=== PATIENT | male | born 1975 | race Caucasian/White ===

== ENCOUNTER → 2017-01-26 | Outpatient (CLI) | payer MEDICARE, OTHER | LOC: RAD 09:03 | PROVIDERS: ATTEND Internal Medicine | DX: C62.02 Malignant neoplasm of undescended left testis (principal) | CPT/HCPCS: 71260; 74177 ==

== ENCOUNTER 2017-11-05 10:18 | Emergency (ER) | payer MEDICARE, OTHER ==
--- NOTE | 2017-11-05 10:34 | ER Document Report ---
ED Medical Screen (RME) - General Chief Complaint: Abdominal Pain Stated Complaint: ABDOMINAL PAIN Time Seen by Provider: 11/05/17 10:28 Mode of Arrival: Ambulatory Information source: Patient TRAVEL OUTSIDE OF THE [place] IN LAST 30 DAYS: No - HPI Patient complains to provider of: abd pain Onset: Other - pt was treated at PCP office for sinus infection last week. Now with abdominal pain - Related Data Allergies/Adverse Reactions: No Known Allergies Allergy (Verified 01/17/13 18:13) Past Medical History - Past Medical History Cardiac Medical History: Denies: Hx Coronary Artery Disease, Hx Heart Attack, Hx Hypertension Pulmonary Medical History: Denies: Hx Asthma, Hx Bronchitis, Hx COPD, Hx Pneumonia Neurological Medical History: Reports: Hx Seizures - LAST ONE 2 MONTHS AGO. Denies: Hx Cerebrovascular Accident Endocrine Medical History: Denies: Hx Diabetes Mellitus Type 1, Hx Diabetes Mellitus Type 2 Malignancy Medical History: Reports Hx Testicular Cancer Musculoskeltal Medical History: Denies Hx Arthritis Psychiatric Medical History: Reports: Hx Attention Deficit Hyperactivity Disorder Past Surgical History: Reports: Hx Orthopedic Surgery - left shoulder surgery - Immunizations Hx Diphtheria, Pertussis, Tetanus Vaccination: No Physical Exam - Vital signs Vitals: Temp Pulse Resp BP Pulse Ox 98.4 F 81 16 123/78 96 11/05/17 10:23 11/05/17 10:11/05/17 10:23 11/05/17 10:23 11/05/17 10:23 Course - Vital Signs Vital signs: Temp Pulse Resp BP Pulse Ox 98.4 F 81 16 123/78 96 11/05/17 10:23 11/05/17 10:23 11/05/17 10:23 11/05/17 10:23 11/05/17 10:23
--- NOTE | 2017-11-05 11:15 | RADIOLOGY REPORT (SQ) ---
EXAM DESCRIPTION: ACUTE ABDOMEN SERIES COMPLETED DATE/TIME: 11/05/2017 10:59 am REASON FOR STUDY: abd pain COMPARISON: None. NUMBER OF VIEWS: Three views. TECHNIQUE: Frontal chest, supine abdomen and upright/decubitus abdomen radiographic images acquired. LIMITATIONS: None. FINDINGS: CHEST: Lungs clear of infiltrates. FREE AIR: None. No abnormal gas collections. BOWEL GAS PATTERN: Nonobstructive pattern. No dilated loops or air fluid levels. CALCIFICATIONS: No suspicious calcifications. HARDWARE: None in the abdomen. SOFT TISSUES: No gross mass or suggestion of organomegaly. BONES: No acute fracture. No worrisome bone lesions. OTHER: No other significant finding. IMPRESSION: NO RADIOGRAPHIC EVIDENCE FOR ACUTE ABDOMINAL DISEASE. TECHNICAL DOCUMENTATION: JOB ID: [id number] [employer] All Rights Reserved
[2017-11-05 11:17] LABS: ABSOLUTE EOSINOPHILS # (AUTO) 0.1 10^3/uL (0.0-0.6); ABSOLUTE LYMPHOCYTES (AUTO) 2.2 10^3/uL (0.5-4.7); ABSOLUTE MONOCYTES (AUTO) 0.6 10^3/uL (0.1-1.4); ABSOLUTE NEUT (AUTO) 4.4 10^3/uL (1.7-8.2); BASOPHILS % (AUTO) 0.3 % (0-2); EOSINOPHILS % (AUTO) 1.3 % (0-6); HEMATOCRIT 46.3 % (37.9-51.0); HEMOGLOBIN 15.9 g/dL (13.5-17.0); LYMPHOCYTES % (AUTO) 29.8 % (13-45); MEAN CORPUSCULAR HEMOGLOBIN 30.2 pg (27.0-33.4); MEAN CORPUSCULAR HGB CONC 34.2 g/dL (32.0-36.0); MEAN CORPUSCULAR VOLUME 88 fl (80-97); MONOCYTES % (AUTO) 8.3 % (3-13); PLATELET COUNT 310 10^3/uL (150-450); RED BLOOD COUNT 5.24 10^6/uL (4.35-5.55); RED CELL DISTRIBUTION WIDTH 12.4 % (11.5-14.0); SEGMENTED NEUTROPHILS % (AUTO) 60.3 % (42-78); TOTAL CELLS COUNTED % (AUTO) 100 %; WHITE BLOOD COUNT 7.2 10^3/uL (4.0-10.5)
[2017-11-05 11:20] LABS: APPEARANCE,URINE CLEAR; BILIRUBIN,URINE NEGATIVE (NEGATIVE); COLOR,URINE YELLOW; GLUCOSE, URINE NEGATIVE (NEGATIVE); KETONES,URINE NEGATIVE (NEGATIVE); LEUKOCYTE ESTERASE,URINE SMALL (NEGATIVE); NITRITE,URINE NEGATIVE (NEGATIVE); PROTEIN,URINE NEGATIVE (NEGATIVE); URINE SPECIFIC GRAVITY 1.015; UROBILINOGEN,URINE NEGATIVE mg/dL (<2.0)
[2017-11-05 11:35] LABS: ALANINE AMINOTRANSFERASE 72 U/L (21-72); ALBUMIN 4.3 g/dL (3.5-5.0); ALKALINE PHOSPHATASE 49 U/L (38-126); ANION GAP 10 (5-19); ASPARTATE AMINO TRANSFERASE 31 U/L (17-59); BILIRUBIN,DIRECT 0.4 mg/dL (0.0-0.4); BILIRUBIN,TOTAL 0.8 mg/dL (0.2-1.3); BLOOD UREA NITROGEN 15 mg/dL (7-20); CALCIUM 10.1 mg/dL (8.4-10.2); CARBON DIOXIDE 28 mmol/L (22-30); CHLORIDE 104 mmol/L (98-107); GLUCOSE 109 mg/dL (75-110); LIPASE 120.6 U/L (23-300); POTASSIUM 4.7 mmol/L (3.6-5.0); SODIUM 141.6 mmol/L (137-145); TOTAL PROTEIN 6.8 g/dL (6.3-8.2)
[2017-11-05 11:48] VITALS: BP 130/74
--- NOTE | 2017-11-05 11:54 | ER Document Report ---
ED General - General Chief Complaint: Abdominal Pain Stated Complaint: ABDOMINAL PAIN Time Seen by Provider: 11/05/17 10:28 Mode of Arrival: Ambulatory Notes: Patient is here with 2 primary concerns. He says that he was seen by a local physician about 2 weeks ago for about 1 week of head and sinus congestion. He was put on amoxicillin for sinusitis which he finished taking yesterday. He is continuing to have head aches and pains in the forehead region and sinus regions. Patient was a smoker but stopped at the time that he started having these symptoms, about 2-1/2 weeks ago. In addition, patient is complaining of his stomach being upset and having pains with a little nausea. He has had some cough and congestion. Not running any fever. Patient had a testicular cancer diagnosed 5 years ago and had that testicle removed. He has been clean on all his annual follow-ups. No other surgeries. TRAVEL OUTSIDE OF THE [place] IN LAST 30 DAYS: No - Related Data Allergies/Adverse Reactions: No Known Allergies Allergy (Verified 01/17/13 18:13) Past Medical History - General Information source: Patient - Social History Smoking Status: Former Smoker - Stopped smoking 2 weeks ago Chew tobacco use (# tins/day): No Frequency of alcohol use: Occasional Drug Abuse: None Family History: None Patient has suicidal ideation: No Patient has homicidal ideation: No Neurological Medical History: Reports: Hx Seizures - LAST ONE 2 MONTHS AGO, not on any medications Endocrine Medical History: Denies: Hx Diabetes Mellitus Type 1, Hx Diabetes Mellitus Type 2 Malignancy Medical History: Reports Hx Testicular Cancer Musculoskeltal Medical History: Denies Hx Arthritis Psychiatric Medical History: Reports: Hx Attention Deficit Hyperactivity Disorder Past Surgical History: Reports: Hx Abdominal Surgery - x2 hernia repair, Hx Genitourinary Surgery - testicular surgery, Hx Orthopedic Surgery - left shoulder surgery - Immunizations Hx Diphtheria, Pertussis, Tetanus Vaccination: No Review of Systems - Review of Systems Notes: CONSTITUTIONAL : Denies fever. CARDIOVASCULAR: Denies chest pain. RESPIRATORY: Has a cough, mostly dry, but some congestion, but not short of breath. GASTROINTESTINAL: See HPI. GENITOURINARY: Denies difficulty or painful urinating, urinary frequency, blood in urine. Physical Exam - Vital signs Vitals: Temp Pulse Resp BP Pulse Ox 98.4 F 81 16 123/78 96 11/05/17 10:23 11/05/17 10:23 11/05/17 10:23 11/05/17 10:23 11/05/17 10:23 Interpretation: Normal. No: Febrile - Notes Notes: PHYSICAL EXAMINATION: GENERAL: Well-appearing, no acute distress. Does not sound congested. HEAD: Atraumatic, normocephalic. No significant nasal drainage at this time. NECK: Normal range of motion, supple. LUNGS: Breath sounds clear and equal bilaterally. HEART: Regular rate and rhythm without murmurs heard. ABDOMEN: Soft, nontender. No guarding or rebound or masses felt. Course - Re-evaluation Re-evalutation: 11/05/17 12:02 Labs and x-rays were all essentially normal except for a blood sugar of 165. Patient has never been diagnosed as diabetic. I advised him he needs to follow- up with his primary care doctor in a few weeks to have a repeat blood sugar and further workup and consider oral medications for his blood sugar. I advised him he does not need another course of antibiotics, and did not likely need to have the course of antibiotics that he did have. He probably has an upset stomach from having been on the amoxicillin and I told him the symptoms will probably resolve over the next few days or week. I am going to give him a short course of prednisone in a declining dose to see if that might help his sinus symptoms. I realize it might also exacerbate his blood sugar issue on the near term. Encouraged patient not to start back smoking. 11/05/17 19:41 Late entry note. I realized that I mistakenly gave this patient copies of the lab studies belonging to another patient. I was attempting to provide this patient with as much information as I could about his current state of health. Unfortunately I made that mistake and I contacted this patient, and he confirmed that I had provided lab studies prolonging to another patient. However , he had already left the hospital and was out of [place] and did not wish to return to bring the papers back. I apologize for the situation and asked that he make a proper confidential disposal of the papers he had that belonged to another patient. Patient said he understood and would confidentially dispose of the erroneous lab results I provided. I did tell the patient that the only thing that changed for him as a result of my mistake is that his blood sugar was not slightly elevated as we have discussed. Rather, it was normal and he did not need to follow-up regarding further testing or evaluation for his blood sugar. - Vital Signs Vital signs: Temp Pulse Resp BP Pulse Ox 98.4 F 80 18 130/74 H 98 11/05/17 11:48 11/05/17 11:48 11/05/17 11:48 11/05/17 11:48 11/05/17 11:48 - Laboratory Result Diagrams: 11/05/17 10:46 11/05/17 10:46 Laboratory results interpreted by me: 11/05/17 10:46 Ur Leukocyte Esterase SMALL H Discharge - Discharge Clinical Impression: Chronic sinusitis, Elevated blood sugar, Upset stomach Condition: Stable Disposition: HOME, SELF-CARE Additional Instructions: ABDOMINAL PAIN: There are many causes of abdominal pain. Pain can mean a serious problem requiring surgery (such as appendicitis). It can also be an innocent problem that goes away on its own (such as a viral infection). Often, time must pass to determine the cause of pain. The physician does not feel that hospitalization is necessary, at present. Things may change within the next 24 hours. Call the doctor or come back for re- examination if any problems occur, such as: (1) Pain that becomes more severe, steady, or becomes concentrated in one specific area. Also, pain that is more severe with movement or coughing. (2) Vomiting that persists or becomes more frequent. (3) Blood in the vomitus, urine, or bowel movements. Blood in the stool may have a tarry or black appearance. (4) Shaking chills or fever greater than 100 degrees F. (5) The abdomen becomes more distended or swollen. (6) Bowel movements cease. (7) Failure to improve as expected. NORMAL EXAM AND WORKUP: At this time, your examination and workup show no significant abnormality. No significant abnormal physical findings are noted. All laboratory, EKG, and imaging (x-ray, CT scans, ultrasound) studies that were ordered show no significant abnormality. Although your examination and all studies that were ordered showed no significant abnormal finding, there are no examinations and no studies that are 100% accurate. There is always the possibility that some abnormality could exist and not be detected with physical examination or within the limits and capabilities of laboratory and other studies. You should return or follow up as you were instructed on your visit today for further evaluation if your symptoms do not resolve. Your upset stomach most likely is due to the recent course of amoxicillin that she was taken. It characteristically causes diarrhea and loose bowels and stomach pains and cramping. Those symptoms resolved when she stopped taking the antibiotic amoxicillin. HYPERGLYCEMIA (HIGH BLOOD SUGAR): You have an abnormally high blood sugar. Not all high blood sugar requires long-term treatment. High blood sugar can be due to medications, , or the stress of illness. (These cases are "borderline diabetes.") If the doctor feels your high blood sugar might resolve with time, you may not require treatment now. It's very important that you follow through, to see if the blood sugar returns to normal levels. Uncontrolled high blood sugar leads to early heart disease, strokes, nerve damage, eye damage, and kidney damage. Call the physician if there is faintness, excess sleepiness, or very rapid breathing. See your primary care provider in a few weeks to recheck her blood sugar and decide if you need to be on pills to treat your very slightly elevated blood sugar. You have symptoms suggestive of chronic sinusitis, some related to smoking and some related to probable chronic nasal congestion. You do not need another course of antibiotics. You are not febrile and your white cell count is normal so you do not have an acute infection in your sinuses. By stopping smoking, that will help in the future. I am going to prescribe a short course of steroid medication, prednisone, to see if it might help with resolving your sinus condition. It may temporarily elevate your blood sugar while you are taking the prednisone. STEROID MEDICATION: You have been given a medicine of the cortisone/steroid class. This medication is used to control inflammation or allergy. It is usually only given for a short period of time, until the acute process subsides. There are usually no side effects from short-term use of cortisone-like medications. Some persons feel an increased sense of well-being and are not sleepy at bedtime. Long-term use of cortisone medications is best avoided, unless required for a severe condition. If your condition does not remit, or relapses after the course of corticosteroid medication, you should consult your physician. FOLLOW-UP CARE: If you have been referred to a physician for follow-up care, call the physician s office for an appointment as you were instructed or within the next two days. If you experience worsening or a significant change in your symptoms, notify the physician immediately or return to the Emergency Department at any time for re-evaluation. Prescriptions: Prednisone [Deltasone 10 mg Tablet] 10 mg PO ASDIR PRN #21 tablet PRN Reason:
== END 2017-11-05 12:01 | disposition home or self-care (01) ==
LOC: ER 10:18
DX: J32.9 Chronic sinusitis, unspecified (principal); R10.9 Unspecified abdominal pain; R11.0 Nausea; R05 Cough; R09.89 Other specified symptoms and signs involving the circulatory and respiratory systems; Z85.47 Personal history of malignant neoplasm of testis; Z87.891 Personal history of nicotine dependence
CPT/HCPCS: 36415; 74022; 80053; 81001; 83690; 85025; 99284

== ENCOUNTER → 2018-02-09 | Outpatient (CLI) | payer MEDICARE, OTHER ==
--- NOTE | 2018-02-09 09:17 | RADIOLOGY REPORT (SQ) ---
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 The patient is less than 50 years old. TECHNIQUE: CT scan of the chest performed using helical scanning technique with dynamic intravenous contrast injection. Images reviewed with lung, soft tissue and bone windows. Reconstructed coronal a nd sagittal MPR images reviewed. All images stored on PACS. CT scan of the abdomen and pelvis performed with intravenous and with oral contrastusing helical scan amber technique with dynamic intravenous contrast injection. Images reviewed with lung, soft tissue a nd bone windows. Reconstructed coronal and sagittal MPR images reviewed. Delayed images for evaluat ion of the urinary system also acquired and evaluated. All images stored on PACS. All CT scanners at this facility use dose modulation, iterative reconstruction, and/or weight based d osing when appropriate to reduce radiation dose to as low as reasonably achievable (ALARA). [facility]: Dose Right [facility]: CareDose [facility]: Dose Right [facility]: Teradose 4D [facility]: Smart [employer] RADIATION DOSE: CT Rad equipment meets quality standard of care and radiation dose reduction techniq ues were employed. CTDIvol: 7.4 - 9.0 mGy. DLP: 1221 mGy-cm. . LIMITATIONS: None. FINDINGS: CHEST: LUNGS AND PLEURA: No opacities, nodules, masses. No pneumothorax. No effusions. HILAR AND MEDIASTINAL STRUCTURES: No identified masses or abnormal nodes. HEART AND VASCULAR STRUCTURES: No aneurysm or dissection. No central pulmonary emboli. No pericardi al effusion. HARDWARE: None. THYROID AND OTHER SOFT TISSUES: No masses. No adenopathy. BONES: No significant finding. OTHER: No other significant finding. ABDOMEN AND PELVIS: LIVER: Normal size. No masses. No dilated ducts. SPLEEN: Normal size. No focal lesions. PANCREAS: No masses. No significant calcifications. No adjacent inflammation or peripancreatic fluid collections. Pancreatic duct not dilated. GALLBLADDER: No identified stones by CT criteria. No inflammatory changes to suggest cholecystitis. ADRENAL GLANDS: No significant masses or asymmetry. RIGHT KIDNEY AND URETER: No solid masses. No significant calcification. No hydronephrosis or hydroure ter. LEFT KIDNEY AND URETER: No solid masses. No significant calcification. No hydronephrosis or hydrouret er. AORTA AND VESSELS: No aneurysm. No dissection. Renal arteries, SMA, celiac without stenosis. RETROPERITONEUM: No retroperitoneal adenopathy, hemorrhage or masses. BOWEL AND PERITONEAL CAVITY: No masses or inflammatory changes. No free fluid or peritoneal masses. APPENDIX: Normal. ABDOMINAL WALL: No masses. No hernias. PELVIS: No mass or free fluid. Normal bladder. BONES: No significant or acute findings. OTHER: No other significant finding. IMPRESSION: NORMAL CT OF THE CHEST WITH IV CONTRAST. NORMAL CT OF THE ABDOMEN AND PELVIS WITH ORAL AND INTRAVENOUS CONTRAST. TECHNICAL DOCUMENTATION: JOB ID: [id number] Quality ID # [id number]: Final reports with documentation of one or more dose reduction techniques (e.g., Au tomated exposure control, adjustment of the mA and/or kV according to patient size, use of iterative reconstruction technique) 2010 [employer]- All Rights Reserved Reading location - IP/workstation name: [email or web address]
== END ==
LOC: RAD 08:17
PROVIDERS: ATTEND Internal Medicine
DX: C62.02 Malignant neoplasm of undescended left testis (principal)
CPT/HCPCS: 71260; 74177

== ENCOUNTER 2018-05-25 11:06 | Emergency (ER) | payer MEDICARE, OTHER ==
[2018-05-25 11:17] VITALS: BP 138/86
--- NOTE | 2018-05-25 11:45 | ER Document Report ---
ED General - General Chief Complaint: Eye Problem Stated Complaint: EYE DISCHARGE/REDNESS Time Seen by Provider: 05/25/18 11:20 Mode of Arrival: Ambulatory Information source: Patient TRAVEL OUTSIDE OF THE [place] IN LAST 30 DAYS: No - HPI Patient complains to provider of: eye discharge, sinus congestion Onset: Other - 2 weeks Associated symptoms: Nonproductive cough, Hoarseness, Rhinnorhea, Sinus pain/ drainage Exacerbated by: Denies Relieved by: Denies Similar symptoms previously: Yes - frequent sinusitis Recently seen / treated by doctor: Yes - physician in [place] Notes: Patient presents for sinus congestion and watery eyes. He states for the last 2 weeks he has had clear drainage and itching in both eyes. He states the drainage in his right eye is more severe than the left. He denies any pain or injury in his eyes. He has been treated for sinus infection about 4 weeks ago and completed a course of amoxicillin. He states his symptoms did improve after antibiotics but then came back worse. He is having sinus congestion and pressure as well as rhinorrhea. He denies fevers and chills. Patient has been using albuterol inhaler and Flonase for symptomatic relief. - Related Data Allergies/Adverse Reactions: No Known Allergies Allergy (Verified 05/25/18 11:34) Past Medical History - Social History Smoking Status: Current Every Day Smoker Chew tobacco use (# tins/day): No Frequency of alcohol use: Occasional Family History: None Patient has suicidal ideation: No Patient has homicidal ideation: No - Medical History Medical History: Other - Testicular cancer - Past Medical History Cardiac Medical History: Denies: Hx Coronary Artery Disease, Hx Heart Attack, Hx Hypertension Pulmonary Medical History: Denies: Hx Asthma, Hx Bronchitis, Hx COPD, Hx Pneumonia Neurological Medical History: Reports: Hx Seizures - LAST ONE 2 MONTHS AGO, not on any medications. Denies: Hx Cerebrovascular Accident Endocrine Medical History: Denies: Hx Diabetes Mellitus Type 1, Hx Diabetes Mellitus Type 2 Renal/ Medical History: Denies: Hx Peritoneal Dialysis Malignancy Medical History: Reports Hx Testicular Cancer Musculoskeletal Medical History: Denies Hx Arthritis Psychiatric Medical History: Reports: Hx Attention Deficit Hyperactivity Disorder Surgical Hx: Other - Left testicle removal Past Surgical History: Reports: Hx Abdominal Surgery - x2 hernia repair, Hx Genitourinary Surgery - testicular surgery, Hx Orthopedic Surgery - left shoulder surgery - Immunizations Hx Diphtheria, Pertussis, Tetanus Vaccination: No Review of Systems - Review of Systems Notes: REVIEW OF SYSTEMS: CONSTITUTIONAL : Denies fever, chills, or sweats. Denies recent illness. EENT: Itchy eyes. Watery eyes. Eye redness. Nasal and sinus congestion. CARDIOVASCULAR: Denies chest pain. RESPIRATORY: Nonproductive cough. Denies shortness of breath, difficulty breathing, or wheezing. GASTROINTESTINAL: Denies abdominal pain. Denies nausea, vomiting, or diarrhea. Denies constipation. Last BM: GENITOURINARY: Denies difficulty urinating, painful urination, burning, frequency, or blood in urine. FEMALE GENITOURINARY: Denies vaginal bleeding, abnormal or irregular periods. LMP: MUSCULOSKELETAL: Denies neck or back pain or joint pain or swelling. SKIN: Denies rash or skin lesions. HEMATOLOGIC : Denies easy bruising or bleeding. LYMPHATIC: Denies swollen, enlarged glands. NEUROLOGICAL: Denies altered mental status or loss of consciousness. Denies headache. Denies weakness or paralysis or loss of use of either side. Denies problems with gait or speech. Denies sensory or motor loss. PSYCHIATRIC: Denies anxiety or stress or depression. ALL OTHER SYSTEMS REVIEWED AND NEGATIVE. Physical Exam - Vital signs Vitals: Temp Pulse Resp BP Pulse Ox 98.7 F 77 18 138/86 H 98 05/25/18 11:14 05/25/18 11:14 05/25/18 11:14 05/25/18 11:14 05/25/18 11:14 - Notes Notes: PHYSICAL EXAMINATION: GENERAL: Well-appearing, well-nourished and in no acute distress. HEAD: Atraumatic, normocephalic. EYES: Pupils equal round and reactive to light, extraocular movements intact, sclera anicteric. Bilateral mild conjunctival injection and clear drainage. No pain with ocular movement. ENT: oropharynx clear without exudates. Moist mucous membranes. Bilateral nasal mucosal edema and rhinorrhea. Bulging TMs bilaterally with middle ear effusion bilaterally. No TM erythema. NECK: Normal range of motion, supple without lymphadenopathy LUNGS: Breath sounds clear to auscultation bilaterally and equal. No wheezes rales or rhonchi. HEART: Regular rate and rhythm without murmurs ABDOMEN: Soft, nontender, normoactive bowel sounds. No guarding, no rebound. No masses appreciated. EXTREMITIES: Normal range of motion, no pitting or edema. No cyanosis. NEUROLOGICAL: No focal neurological deficits. Moves all extremities spontaneously and on command. PSYCH: Normal mood, normal affect. SKIN: Warm, Dry, normal turgor, no rashes or lesions noted. - HEENT Visual acuity- Right eye: 20/15 Visual acuity- Left eye: 20/20 Visual acuity- Both eyes: 20/20 Corrective lenses worn: Yes Course - Re-evaluation Re-evalutation: 05/25/18 11:47 Vitals reviewed and stable. Patient has symptoms consistent with sinusitis. He has bilateral conjunctival injection that is mild. With the eye itching I do not suspect viral or bacterial conjunctivitis. Patient symptoms consistent with allergic conjunctivitis. He was advised to start using Naphcon-A drops for symptomatic treatment. He will be started on Augmentin for sinusitis. He has an appointment with his primary care doctor on Monday which he will keep. He will return for new or worsening symptoms. - Vital Signs Vital signs: Temp Pulse Resp BP Pulse Ox 98.7 F 77 18 138/86 H 98 05/25/18 11:14 05/25/18 11:14 05/25/18 11:14 05/25/18 11:14 05/25/18 11:14 Discharge - Discharge Clinical Impression: Sinusitis, Allergic conjunctivitis Condition: Good Disposition: HOME, SELF-CARE Instructions: Conjunctivitis, Allergic Additional Instructions: Sinusitis You have sinusitis, an infection of the sinus cavities of the face. The sinuses are air-filled chambers which open into the inside of the nose. Bacteria and pus fill a sinus, causing pain, drainage, and fever. Sinusitis is treated with antibiotics. Often, expectorants (to thin the sinus mucous) or decongestants (to reduce swelling) are prescribed as well. Healing requires seven to 10 days. Avoid chemical fumes, pollens, dusts, and smoke (especially cigarette smoke ). Keep the air humidified in your bedroom and work area and take plenty of liquids by mouth. This condition can be serious if the infection spreads. If your symptoms worsen, or if you develop severe headache, high fever, stiff neck, or a rash, you must call the doctor or return for re-evaluation. Prescriptions: Amox Tr/Potassium Clavulanate [Augmentin 875-125 Tablet] 1 tab PO BID 10 Days tablet Referrals: RON GAMEZ MD [Primary Care Provider] - Follow up in 3-5 days
== END 2018-05-25 12:14 | disposition home or self-care (01) ==
LOC: ER 11:06
DX: J32.9 Chronic sinusitis, unspecified (principal); H10.9 Unspecified conjunctivitis; R09.81 Nasal congestion; R05 Cough; R49.0 Dysphonia; J34.89 Other specified disorders of nose and nasal sinuses; R51 Headache; R09.89 Other specified symptoms and signs involving the circulatory and respiratory systems
CPT/HCPCS: 99283

== ENCOUNTER 2018-07-10 11:11 | Emergency (ER) | payer MEDICARE, OTHER ==
[2018-07-10 11:21] VITALS: BP 140/95
[2018-07-10] MEDS ORDERED: KETOROLAC TROMETHAMINE 60 MG/2 ML SDV IM ONE (11:32)
[2018-07-10] MEDS ORDERED: DEXAMETHASONE SOD PHOS INJ 10 MG/1 ML VIAL IM ONE (11:32)
--- NOTE | 2018-07-10 11:33 | ER Document Report ---
HPI - HPI Pain Level: 4 Notes: Patient is a 43-year-old male who presents to the ED complaining of intermittent ongoing right shoulder/mid back pain over the last year from a previous injury. Patient states he is not been evaluated by a specialist for this issue. Patient states that activity makes his pain worse. Patient states that he will occasionally have a tingling to his right arm. Patient describes his discomfort as a tightness in his back. Denies any drug allergies. He has not had any injections to his back or any history of spinal abscess. Denies any IV drug use. Denies drug allergies. Denies any headache, fever, neck pain , URI, sore throat, chest pain, palpitations, syncope, cough, shortness of breath, wheeze, dyspnea, abdominal pain, nausea/vomiting/diarrhea, urinary retention, dysuria, hematuria, loss of control of bowel or bladder, saddle anesthesia, muscle paralysis/weakness, or rash. - ROS Systems Reviewed and Negative: Yes All other systems reviewed and negative - CONSTITUTIONAL Constitutional: DENIES: Fever, Chills - EENT EENT: DENIES: Sore Throat, Ear Pain, Eye problems - CARDIOVASCULAR Cardiovascular: DENIES: Chest pain - RESPIRATORY Respiratory: DENIES: Trouble Breathing, Coughing - GASTROINTESTINAL Gastrointestinal: DENIES: Abdominal Pain, Black / Bloody Stools - URINARY Urinary: DENIES: Dysuria, Urgency, Frequency - MUSCULOSKELETAL Musculoskeletal: DENIES: Extremity pain - right arm Past Medical History - Social History Smoking Status: Current Every Day Smoker Chew tobacco use (# tins/day): No Frequency of alcohol use: Occasional Drug Abuse: None Family History: None Patient has suicidal ideation: No Patient has homicidal ideation: No - Past Medical History Cardiac Medical History: Denies: Hx Coronary Artery Disease, Hx Heart Attack, Hx Hypertension Pulmonary Medical History: Denies: Hx Asthma, Hx Bronchitis, Hx COPD, Hx Pneumonia Neurological Medical History: Reports: Hx Seizures - LAST ONE 2 MONTHS AGO, not on any medications. Denies: Hx Cerebrovascular Accident Endocrine Medical History: Denies: Hx Diabetes Mellitus Type 1, Hx Diabetes Mellitus Type 2 Renal/ Medical History: Denies: Hx Peritoneal Dialysis Malignancy Medical History: Reports Hx Testicular Cancer Musculoskeletal Medical History: Denies Hx Arthritis Psychiatric Medical History: Reports: Hx Attention Deficit Hyperactivity Disorder Past Surgical History: Reports: Hx Abdominal Surgery - x2 hernia repair, Hx Genitourinary Surgery - testicular surgery, Hx Orthopedic Surgery - left shoulder surgery - Immunizations Hx Diphtheria, Pertussis, Tetanus Vaccination: No Vertical Provider Document - CONSTITUTIONAL Agree With Documented VS: Yes Notes: PHYSICAL EXAMINATION: GENERAL: Well-appearing, well-nourished and in no acute distress. LUNGS: Breath sounds clear to auscultation bilaterally and equal. No wheezes rales or rhonchi. HEART: Regular rate and rhythm without murmurs, rubs, gallops. ABDOMEN: Soft, nontender, nondistended abdomen. No guarding, no rebound. No masses appreciated. Normal bowel sounds present. No CVA tenderness bilaterally. No pulsatile mass Musculoskeletal: Rt shoulder: FROM to passive/active. Strength 5+/5 due to pain. Neg speed test. No crepitus. No erythema or warmth. No deformity or ecchymosis. RC intact 5+/5 strength. Ext's otherwise b/l: FROM to passive/active. Strength 5+/5. No deficits noted. No bony tenderness of extremities. N/V intact distal. Thoracic/Low Back: FROM to passive/active. Strength 5+/5. No vertebral point tenderness, stepoffs, or deformities. No other bony tenderness, erythema, swelling, or ecchymosis. SLR negative b/l. + mild tenderness to the rt T- paraspinal mm which correlates with pain described. Mild spasming with trigger points noted. No SI jt tenderness. No foot drop Extremities: No cyanosis, clubbing, or edema b/l. Peripheral pulses 2+. Capillary refill less than 2 seconds. NEUROLOGICAL: Normal speech, normal gait. Normal sensory, motor exams. Reflexes 2+ b/l. PSYCH: Normal mood, normal affect. SKIN: Warm, Dry, normal turgor, no rashes or lesions noted. - INFECTION CONTROL TRAVEL OUTSIDE OF THE [place] IN LAST 30 DAYS: No Course - Re-evaluation Re-evalutation: 07/10/18 11:37 Patient is an afebrile, well-hydrated, 43-year-old male who presents to the ED with acute on chronic thoracic back pain, suspect trapezius mm spasming/strain. Vitals are acceptable. PE is otherwise unremarkable for any focal neurological deficits. Patient was given Decadron and toradol. He has no significant tachycardia, tachypnea, or hypoxia. He is nontoxic-appearing and is tolerating p.o. without difficulties. There are no signs of infection. No other red flag symptoms noted. No other labs or imaging warranted at this time based on H&P. Low suspicion for any meningitis, fracture, expanding/ruptured AAA, cauda equina syndrome, epidural mass lesion/abscess, herniated disc causing severe spinal stenosis, or other systemic infection at this time. Patient is aware that his condition can change from initial presentation and that he needs monitor symptoms closely for any acute changes. I will send him home with a prescription for baclofen and naproxen. Conservative measures otherwise for symptoms. Recheck with your PCM in 3-5 days. Consider consult with orthopedic/physical therapy. Return to the ED with any worsening/ concerning symptoms otherwise as reviewed discharge. Patient is in agreement. - Vital Signs Vital signs: Temp Pulse Resp BP Pulse Ox 98.8 F 73 16 140/95 H 99 07/10/18 11:20 07/10/18 11:20 07/10/18 11:20 07/10/18 11:20 07/10/18 11:20 Discharge - Discharge Clinical Impression: Trapezius muscle spasm Thoracic back pain Qualifiers: Chronicity: acute Back pain laterality: right Qualified Code(s): M54.6 - Pain in thoracic spine Condition: Stable Disposition: HOME, SELF-CARE Instructions: Muscle Relaxers ([facility]) Additional Instructions: Rest, Ice Tylenol/ibuprofen as needed Light stretches daily Strength exercises as able Moist heat and massage may help F/u with your PCP in 3-5 days for a recheck Consider consult(s) with Orthopedics/physical therapy for ongoing/worsening symptoms Return to the ED with any worsening symptoms and/or development of fever, headache, chest pain, palpitations, syncope, shortness of breath, trouble breathing, abdominal pain, n/v/d, blood in stool/urine, loss of control of bowel /bladder, urinary retention, muscle weakness/paralysis, saddle anesthesia, numbness/tingling, or other worsening symptoms that are concerning to you. Prescriptions: Baclofen [Baclofen 10 mg Tablet] 5 - 10 mg PO BID PRN #10 tablet PRN Reason: Naproxen 500 mg PO BID PRN #20 tablet PRN Reason: Forms: Elevated Blood Pressure Referrals: RON GAMEZ MD [Primary Care Provider] - Follow up as needed [facility] [Provider Group] - Follow up as needed
== END 2018-07-10 12:01 | disposition home or self-care (01) ==
LOC: ER 11:11
DX: M62.830 Muscle spasm of back (principal); M54.6 Pain in thoracic spine; G89.29 Other chronic pain; R20.2 Paresthesia of skin; M25.511 Pain in right shoulder; F17.200 Nicotine dependence, unspecified, uncomplicated
CPT/HCPCS: 99283; 96372; J1885; J1100

== ENCOUNTER 2018-08-07 12:04 | Emergency (ER) | payer MEDICARE, OTHER ==
[2018-08-07 12:12] VITALS: BP 141/85
--- NOTE | 2018-08-07 13:17 | ER Document Report ---
ED General - General Chief Complaint: Neck and Upper Back Pain Stated Complaint: BACK/NECK/ARM PAIN/SINUS PRESSURE Time Seen by Provider: 08/07/18 13:03 Mode of Arrival: Ambulatory Information source: Patient Notes: Patient is a 43-year-old male comes emergency room complaining of multiple things. Primarily is #1 complaint is back and neck pain. He also states that it he was seen here recently on June for the same complaint he was referred to an orthopedist and the orthopedic doctor sent him to physical therapy. Patient comes in today requesting that we do an MRI of the area because he is not getting any better. Secondly he has an upper respiratory cold congestion runny nose and cough denies any fevers. He does smoke about half pack cigarettes a day. He denies any other medical problems. TRAVEL OUTSIDE OF THE [place] IN LAST 30 DAYS: No - HPI Onset: Other - Upper respiratory cold 2 days. Shoulder and neck one year. Onset/Duration: Gradual, Persistent Quality of pain: Achy, Stabbing, Throbbing Severity: Moderate Pain Level: 3 Associated symptoms: Nonproductive cough, Headache, Sinus pain/drainage, Sore throat Exacerbated by: Supine, Standing, Movement Relieved by: Denies Similar symptoms previously: Yes Recently seen / treated by doctor: Yes - Related Data Allergies/Adverse Reactions: No Known Allergies Allergy (Verified 08/07/18 12:05) Past Medical History - General Information source: Patient - Social History Smoking Status: Current Every Day Smoker Cigarette use (# per day): Yes - Half-pack a day Chew tobacco use (# tins/day): No Smoking Education Provided: Yes Frequency of alcohol use: Social Drug Abuse: None Family History: None, Reviewed & Not Pertinent Patient has suicidal ideation: No Patient has homicidal ideation: No - Past Medical History Cardiac Medical History: Denies: Hx Coronary Artery Disease, Hx Heart Attack, Hx Hypertension Pulmonary Medical History: Denies: Hx Asthma, Hx Bronchitis, Hx COPD, Hx Pneumonia Neurological Medical History: Reports: Hx Seizures - LAST ONE 2 MONTHS AGO, not on any medications. Denies: Hx Cerebrovascular Accident Endocrine Medical History: Denies: Hx Diabetes Mellitus Type 1, Hx Diabetes Mellitus Type 2 Renal/ Medical History: Denies: Hx Peritoneal Dialysis Malignancy Medical History: Reports Hx Testicular Cancer Musculoskeletal Medical History: Denies Hx Arthritis Psychiatric Medical History: Reports: Hx Attention Deficit Hyperactivity Disorder Past Surgical History: Reports: Hx Abdominal Surgery - x2 hernia repair, Hx Genitourinary Surgery - testicular surgery, Hx Orthopedic Surgery - left shoulder surgery - Immunizations Hx Diphtheria, Pertussis, Tetanus Vaccination: No Review of Systems - Review of Systems Constitutional: No symptoms reported EENT: No symptoms reported, Nose congestion, Nose discharge, Sinus pressure, Sinus discharge Cardiovascular: No symptoms reported Respiratory: No symptoms reported Gastrointestinal: No symptoms reported Genitourinary: No symptoms reported Male Genitourinary: No symptoms reported Musculoskeletal: Back pain, Neck pain Skin: No symptoms reported Hematologic/Lymphatic: No symptoms reported Neurological/Psychological: No symptoms reported -: Yes All other systems reviewed and negative Physical Exam - Vital signs Vitals: Temp Pulse Resp BP Pulse Ox 98.4 F 88 16 141/85 H 96 08/07/18 12:11 08/07/18 12:11 08/07/18 12:11 08/07/18 12:11 08/07/18 12:11 Interpretation: Hypertensive - Notes Notes: PHYSICAL EXAMINATION: GENERAL: Well-appearing, well-nourished and in no acute distress. HEAD: Atraumatic, normocephalic. EYES: Pupils equal round and reactive to light, extraocular movements intact, sclera anicteric, conjunctiva are normal. ENT: Examination head and upper airway showed nasal mucosa to be erythematous and edematous with some rhinorrhea noted. Patient also displays some mild tenderness to palpation of the frontal sinuses. Examination of the ears show he has bilateral TM bulging without any air-fluid levels. External canals have some mild cerumen throughout the but no obstruction of the TM view is present. Examination of posterior pharynx shows some moderate amount of drainage as well as some erythema throughout the posterior pharynx uvula is midline with erythema but no encroachment upon the uvula. Drainage appears to be a off yellowish color. NECK: Normal range of motion, supple without lymphadenopathy LUNGS: Breath sounds clear to auscultation bilaterally and equal. Patient displays some mild inspiratory expiratory wheeze. No rhonchi or rales are heard. HEART: Regular rate and rhythm without murmurs ABDOMEN: Soft, nontender, nondistended abdomen. No guarding, no rebound. No masses appreciated. Musculoskeletal: Examination the patient complained areas neck and right arm pain shows moderate amount of decreased range of motion but nothing concerning for acute problems. NEUROLOGICAL:. Normal speech, normal gait. Normal sensory, motor exams PSYCH: Normal mood, normal affect. SKIN: Warm, Dry, normal turgor, no rashes or lesions noted. Course - Re-evaluation Re-evalutation: 08/07/18 13:17 Patient comes in and he is open with me about being seen on July 10 for the same complaints and had a workup done. He also states that he did go to the orthopedic appointment that he was referred to with our group in house he believes that the doctor he saw was Dr. Antonieta Chandler and he states that they sent him to physical therapy. He states he supposed to be physical therapy in 1 hour. He came out and asked me point blank if I could do an MRI of his problems and I informed him I could not. He stated can I giving a medications that are stronger than the medications previously given him for this problem and I informed him I could not. He asked me why and I told him that he has been seeing a specialist he has a open door to the specialist and this is something that needs to be addressed by the specialist. Since he saw the specialist and did not mention anything about the pain control he can continue with the medication he has he can add ibuprofen to it as I have instructed him. He can add ibuprofen in combination with Tylenol. I have informed him that because he is seeing a specialist I am not going to go into any substantial increase in pain treatment because I do not want to interfere with the specialist plan of care. I did tell him I would be more than happy to see him for his upper respiratory type presentation and he stated that that was fine with him and understood why I could not do the increase in or changing of pain medications. I believe that he is adequately covered with the baclofen. - Vital Signs Vital signs: Temp Pulse Resp BP Pulse Ox 98.4 F 88 16 141/85 H 96 08/07/18 12:11 08/07/18 12:11 08/07/18 12:11 08/07/18 12:11 08/07/18 12:11 Discharge - Discharge Clinical Impression: Chronic pain due to injury, Upper respiratory infection, viral Condition: Stable Disposition: HOME, SELF-CARE Instructions: Acetaminophen, Upper Respiratory Illness ([facility]), Viral Syndrome ( [facility]) Additional Instructions: As we have discussed I cannot change the medications you are on currently for pain control since you are seeing a specialist in this field of expertise. He is states you to physical therapy we have coverage you with what I believe to be appropriate medications and this is a something that you need to discuss with the specialist as on the nature of what medications he would like to give you for this type of pain. We also do not do routine MRIs out of the emergency room especially for chronic problems. This is also something that the specialist can order for you if he desires. Continue with the current medication as you got. You may add ibuprofen and Tylenol in combination form this may give you some more substantial relief. I am also going to place you on a steroid taper for the sinus and wheeze that you have going on and Sudafed to dry up the nasal congestion. Should you have any other problems or concerns return to ER for a recheck. Prescriptions: Prednisone 10 mg PO ASDIR PRN 6 Days #1 tab.ds.pk PRN Reason: Pseudoephedrine HCl [Sudafed 12 Hour] 120 mg PO BID #20 tablet.er Forms: Elevated Blood Pressure, Smoking Cessation Education Referrals: KIKI GEORGE MD [ACTIVE STAFF] - Follow up as needed
== END 2018-08-07 13:30 | disposition home or self-care (01) ==
LOC: ER 12:04
DX: G89.29 Other chronic pain (principal); T14.90XS Injury, unspecified, sequela; X58.XXXS Exposure to other specified factors, sequela; J06.9 Acute upper respiratory infection, unspecified; B97.89 Other viral agents as the cause of diseases classified elsewhere; M54.9 Dorsalgia, unspecified; M54.2 Cervicalgia; M79.601 Pain in right arm; R05 Cough; R51 Headache; J34.89 Other specified disorders of nose and nasal sinuses; J02.9 Acute pharyngitis, unspecified; R09.89 Other specified symptoms and signs involving the circulatory and respiratory systems; F17.210 Nicotine dependence, cigarettes, uncomplicated; Z85.47 Personal history of malignant neoplasm of testis
CPT/HCPCS: 99283

== ENCOUNTER → 2018-08-24 | Outpatient (CLI) | payer MEDICARE, OTHER ==
--- NOTE | 2018-08-24 16:34 | RADIOLOGY REPORT (SQ) ---
EXAM DESCRIPTION: MRI CERVICAL SPINE WITHOUT COMPLETED DATE/TIME: 08/24/2018 4:22 pm REASON FOR STUDY: M54.12 RADICULOPATHY, CERVICAL REGION M54.12 RADICULOPATHY, CERVICAL REGION COMPARISON: None. TECHNIQUE: Sagittal and Axial imaging includes T1, T2, STIR and gradient echo sequences. LIMITATIONS: None. FINDINGS: ALIGNMENT: Reversal of cervical lordosis VERTEBRAE: Intact. BONE MARROW: Normal. No marrow replacement or reactive changes. DISCS: Diffuse decreased T2 weighted intervertebral disc signal. Anterior disc space loss of height at C5-6 HARDWARE: None in the spine. CORD AND BASE OF BRAIN: Mild prominence of the central canal spinal cord from the C6-7 level to the m id T1 level. SOFT TISSUES: No soft tissue masses. C1-C2: No significant spinal stenosis. C2-C3: Mild posterior disc bulging is present without central stenosis. Very mild bilateral foramina l narrowing. C3-C4: Mild diffuse posterior disc bulging is present without central stenosis. Moderate right, high -grade left foraminal narrowing from facet and uncovertebral hypertrophy C4-C5: Moderate diffuse posterior disc bulge and bony spurring partly effaces the ventral thecal sac and abuts the ventral cord without cord flattening or abnormal intrinsic cord signal. Mild central c anal narrowing. High-grade bilateral foraminal stenosis from facet and uncovertebral hypertrophy C5-C6: Broad diffuse posterior disc bulge and bony spurring left greater than right effaces the ventr al thecal sac and abuts the ventral cord without cord flattening. No abnormal intrinsic cord signal. Mild central canal stenosis. High-grade bilateral foraminal narrowing left greater than right C6-C7: Broad diffuse posterior disc bulge and bony spurring effaces the ventral thecal sac and abuts the ventral cord without cord flattening or abnormal intrinsic cord signal. Mild central canal steno sis. High-grade bilateral foraminal stenosis. C7-T1: No significant spinal stenosis or exit foraminal stenosis. UPPER THORACIC: Incompletely imaged. No significant spinal stenosis or exit foraminal stenosis. OTHER: No other significant finding. IMPRESSION: Multilevel significant foraminal stenosis and diffuse mild central canal stenosis TECHNICAL DOCUMENTATION: JOB ID: [id number] All Rights Reserved Reading location - IP/workstation name: [email or web address]
== END ==
LOC: RAD 15:57
PROVIDERS: ATTEND Orthopaedic Surgery
DX: M54.12 Radiculopathy, cervical region (principal)
CPT/HCPCS: 72141

== ENCOUNTER 2018-10-21 17:58 | Emergency (ER) | payer MEDICARE, OTHER ==
[2018-10-21 18:05] VITALS: BP 148/78
--- NOTE | 2018-10-21 18:41 | ER Document Report ---
ED Neuro Symptoms/Deficit - General Chief Complaint: Numbness Stated Complaint: HAND NUMBNESS Time Seen by Provider: 10/21/18 18:21 Primary Care Provider: [facility] [Provider Group] - Follow up tomorrow (Call tomorrow for an appointment with your spine surgeon.) Mode of Arrival: Ambulatory Information source: Patient, [facility] Records Notes: This 43-year-old male patient comes emerged from complaining of her right hand numbness over the thumb and index finger for the past 2 days. He had an MRI on 08/24/2018 showing significant degenerative changes and bulging disks with lateral foraminal stenosis at C4 through C7 region. He has had these symptoms in the past but they resolved with physical therapy doing neck traction type maneuvers. He does have an appointment with his spine surgeon next month to discuss surgery for his problem. He has not been on steroids for this problem. He does notice if his head is pulled away from his body the symptoms improve. TRAVEL OUTSIDE OF THE [place] IN LAST 30 DAYS: No - Related Data Allergies/Adverse Reactions: No Known Allergies Allergy (Verified 08/07/18 12:05) Past Medical History - General Information source: Patient, [facility] Records - Social History Smoking Status: Former Smoker Cigarette use (# per day): No Chew tobacco use (# tins/day): No Smoking Education Provided: No Frequency of alcohol use: Occasional Drug Abuse: None Lives with: Spouse/Significant other Family History: None, Reviewed & Not Pertinent Patient has suicidal ideation: No Patient has homicidal ideation: No Neurological Medical History: Reports: Hx Seizures - last seizure summer, not on any medications Malignancy Medical History: Reports Hx Testicular Cancer Psychiatric Medical History: Reports: Hx Attention Deficit Hyperactivity Disorder Past Surgical History: Reports: Hx Genitourinary Surgery - testicular surgery, Hx Herniorrhaphy - x2, Hx Orthopedic Surgery - left shoulder surgery - Immunizations Hx Diphtheria, Pertussis, Tetanus Vaccination: No Review of Systems - Review of Systems Constitutional: No symptoms reported EENT: No symptoms reported Cardiovascular: No symptoms reported Respiratory: No symptoms reported Gastrointestinal: No symptoms reported Genitourinary: No symptoms reported Musculoskeletal: No symptoms reported Skin: No symptoms reported Hematologic/Lymphatic: No symptoms reported Neurological/Psychological: See HPI Physical Exam - Vital signs Vitals: Temp Pulse Resp BP Pulse Ox 98.3 F 91 18 148/78 H 95 10/21/18 18:03 10/21/18 18:03 10/21/18 18:03 10/21/18 18:03 10/21/18 18:03 Interpretation: Normal - Notes Notes: PHYSICAL EXAMINATION: GENERAL: Well-appearing, well-nourished and in no acute distress. HEAD: Atraumatic, normocephalic. EYES: Pupils equal round and reactive to light, extraocular movements intact, sclera anicteric, conjunctiva are normal. ENT: nares patent, oropharynx clear without exudates. Moist mucous membranes. NECK: Normal range of motion, supple without lymphadenopathy. The patient avoids extending his neck as that would cause compression on cervical nerve and exacerbate his discomfort. LUNGS: Breath sounds clear to auscultation bilaterally and equal. No wheezes rales or rhonchi. HEART: Regular rate and rhythm without murmurs ABDOMEN: Soft, nontender, normoactive bowel sounds. No guarding, no rebound. No masses appreciated. EXTREMITIES: Normal range of motion, no pitting or edema. No cyanosis. There is no motor weakness at this time to the hands and fingers. NEUROLOGICAL: Cranial nerves grossly intact. Normal speech, normal gait. No rmal sensory, motor, and reflex exams. PSYCH: Normal mood, normal affect. SKIN: Warm, Dry, normal turgor, no rashes or lesions noted. Course - Vital Signs Vital signs: Temp Pulse Resp BP Pulse Ox 98.3 F 91 18 148/78 H 95 10/21/18 18:03 10/21/18 18:03 10/21/18 18:03 10/21/18 18:03 10/21/18 18:03 Discharge - Discharge Clinical Impression: Disorder of intervertebral disc at C5-C6 level with radiculopathy Condition: Stable Disposition: HOME, SELF-CARE Additional Instructions: Radiculopathy Radiculopathy is irritation of a nerve. Sometimes this is called "pinched nerve." The pain can be sharp and stabbing, constant and dull, or burning in nature. The pain can occur in any area of the chest, shoulders, or arms. Sometimes the pain is provoked by coughing or moving. Radiculopathy can be caused by physical pressure on a nerve, such as a herniated disc or swollen joint in the spine. It can also be caused by viral infections within the nerve or by nerve damage due to diabetes or blood vessel disease. Radicular pain is treated with antiinflammatory medicine. Injections may help resistant cases, if we can identify a single nerve that's causing the pain. Surgery is usually not necessary. If symptoms do not improve with time, you may need additional testing, such as an MRI or EMG (electromyogram). Return if there is local weakness or numbness, shortness of breath, increasing pain, or other new symptoms. Your history suggest you have a C6 cervical nerve radiculopathy. Your MRI from July 2018 shows multilevel cervical disc disease. Start the prednisone as prescribed tomorrow--you were given today's dose here in the emergency room. Try to avoid extending your neck, as this will tend to pinch the nerves worse. Call your spine surgeon tomorrow for an appointment. RETURN TO THE EMERGENCY ROOM IF ANY NEW OR WORSENING SYMPTOMS. Prescriptions: Prednisone [Deltasone 10 mg Tablet] 10 mg PO ASDIR PRN #21 tablet PRN Reason: Referrals: [facility] [Provider Group] - Follow up tomorrow (Call tomorrow for an appointment with your spine surgeon.)
[2018-10-21] MEDS ORDERED: PREDNISONE 20 MG TABLET PO ONE (18:42)
== END 2018-10-21 18:47 | disposition home or self-care (01) ==
LOC: ER 17:58
DX: M54.12 Radiculopathy, cervical region (principal); R20.0 Anesthesia of skin; Z79.52 Long term (current) use of systemic steroids; Z87.891 Personal history of nicotine dependence
CPT/HCPCS: 99283; A9270; J7512

== ENCOUNTER 2019-03-04 17:38 | Emergency (ER) | payer MEDICARE, OTHER ==
[2019-03-04] MEDS ORDERED: IBUPROFEN 800 MG TABLET PO ONE (19:14)
[2019-03-04] MEDS ORDERED: AMOXICILLIN TR/POT CLAVULANATE 500-125 MG TAB PO ONE (19:23)
[2019-03-04] MEDS ORDERED: AMOXICILLIN TRIHYD 250 MG CAPSULE PO ONE (19:23)
--- NOTE | 2019-03-04 20:12 | ER Document Report ---
HPI - HPI Patient complains to provider of: Sinus pressure Time Seen by Provider: 03/04/19 19:14 Pain Level: 3 Context: Patient is otherwise healthy 43-year-old male presents to the emergency department for generalized cough, congestion, frontal sinus pressure, intermittent shortness of breath, subjective fever for the last 9 days. Patient's denying any headache, chest pain, nuchal rigidity, rashes. Patient has history of asthma, uses albuterol inhalers as needed, denies medical allergies. - CONSTITUTIONAL Constitutional: REPORTS: Fever, Chills - RESPIRATORY Respiratory: REPORTS: Coughing Past Medical History - General Information source: Patient - Social History Smoking Status: Never Smoker Family History: None, Reviewed & Not Pertinent Patient has suicidal ideation: No Patient has homicidal ideation: No - Past Medical History Cardiac Medical History: Denies: Hx Coronary Artery Disease, Hx Heart Attack, Hx Hypertension Pulmonary Medical History: Denies: Hx Asthma, Hx Bronchitis, Hx COPD, Hx Pneumonia Neurological Medical History: Reports: Hx Seizures - last seizure summer, not on any medications. Denies: Hx Cerebrovascular Accident Endocrine Medical History: Denies: Hx Diabetes Mellitus Type 1, Hx Diabetes Mellitus Type 2 Renal/ Medical History: Denies: Hx Peritoneal Dialysis Malignancy Medical History: Reports Hx Testicular Cancer Musculoskeletal Medical History: Denies Hx Arthritis Psychiatric Medical History: Reports: Hx Attention Deficit Hyperactivity Disorder Past Surgical History: Reports: Hx Abdominal Surgery - x2 hernia repair, Hx Genitourinary Surgery - testicular surgery, Hx Herniorrhaphy - x2, Hx Orthopedic Surgery - left shoulder surgery - Immunizations Hx Diphtheria, Pertussis, Tetanus Vaccination: No Vertical Provider Document - CONSTITUTIONAL Agree With Documented VS: Yes Notes: GENERAL: Alert, interacts well. No acute distress. Although febrile upon arrival to the emergency room. HEAD: Normocephalic, atraumatic. Generalized frontal sinus tenderness noted, no maxillary sinus tenderness noted bilaterally EYES: Pupils equal, round, and reactive to light. Extraocular movements intact. ENT: Oral mucosa moist, tongue midline. Nares patent, swollen turbinates noted bilaterally. pharynx within normal limits no palatal petechiae noted TM's intact,nonerythematous, nonbulging bilaterally. NECK: Full range of motion. Supple. Trachea midline. No lymphadenopathy appreciated, no nuchal rigidity noted. LUNGS: Clear to auscultation bilaterally, no wheezes, rales, or rhonchi. No respiratory distress. HEART: Regular rate and rhythm. No murmur ABDOMEN: Soft, non-tender. Non-distended. Bowel sounds present in all 4 quadrants. EXTREMITIES: Moves all 4 extremities spontaneously. No edema, normal radial and dorsalis pedis pulses bilaterally. No cyanosis. BACK: no cervical, thoracic, lumbar midline tenderness. No saddle anesthesia, normal distal neurovascular exam. NEUROLOGICAL: Alert and oriented x3. Normal speech. cranial nerves II through XII grossly intact. PSYCH: Normal affect, normal mood. SKIN: Warm, dry, normal turgor. No rashes or lesions noted. - INFECTION CONTROL TRAVEL OUTSIDE OF THE [place] IN LAST 30 DAYS: No Course - Re-evaluation Re-evalutation: 03/04/19 20:10 I have a low suspicion of meningitis at this time. Patient overall appears well. The patient was noted to be febrile in the emergency department and slightly tachycardic which I feel is secondary to the fever. After initial treatments patient is still febrile it is noted that patient has 2 blankets over him. They were both removed.. He does have moist mucous membranes and is poing fluids like normally. Patient denies any chest pain, abdominal pain, shortness of breath currently. Patient's lung sounds are clear and equal in all jay. Patient is requesting a refill for of his albuterol inhaler. I do feel as though based on his frontal sinus tenderness, URI symptoms for 9 days and the fact that he is febrile in the emergency department I will treat for sinusitis. 03/04/19 20:56 In reviewing past charts patient was noted to have a temperature of 100.9 upon initial arrival. Patient was inevitably treated with Motrin. Repeat temperature was 101.0. Tylenol was then administered. Repeat vital signs reveal patient to be afebrile, non-tachycardic. Patient continues to appear nontoxic, well-hydrated, in no apparent distress. I have again discussed use of antibiotics Staying well-hydrated, antipyretics at home. Discussed close follow-up with primary care provider and return precautions. Patient voices understanding. Stable for discharge. This medical record was dictated with voice recognizing software. There may be grammatical, syntax errors that are unintended. - Vital Signs Vital signs: Temp Pulse Resp BP Pulse Ox 100.9 F H 108 H 18 133/80 H 96 03/04/19 17:44 03/04/19 17:44 03/04/19 17:44 03/04/19 17:44 03/04/19 17:44 Discharge - Discharge Clinical Impression: Sinusitis Qualifiers: Sinusitis location: frontal Chronicity: acute Recurrence: non-recurrent Qualified Code(s): J01.10 - Acute frontal sinusitis, unspecified Condition: Stable Disposition: HOME, SELF-CARE Instructions: Sinusitis ([facility]) Additional Instructions: As we discussed you have been seen and treated in the emergency department for a sinus infection. Please make sure you take antibiotics as prescribed. Please also make sure he continue to take [id number] Tylenol and Motrin for generalized pain and fevers. Please also stay well-hydrated. Please follow-up with a primary care provider in the next 24 to 48 hours return to the emergency room for any concerns. Prescriptions: RX: Albuterol Sulfate [Proair HFA Inhalation Aerosol 8.5 gm MDI] 2 puff IH Q4H PRN #1 mdi PRN Reason: Amox Tr/Potassium Clavulanate [Augmentin 875-125 Tablet] 1 tab PO BID 10 Days tablet Forms: Return to Work Referrals: MARA FISCHER FNP-C [Primary Care Provider] - Follow up as needed
[2019-03-04] MEDS ORDERED: ACETAMINOPHEN 325 MG TABLET PO ONE (20:21)
[2019-03-04 21:01] VITALS: BP 114/63
== END 2019-03-04 21:17 | disposition home or self-care (01) ==
LOC: ER 17:38
DX: J01.10 Acute frontal sinusitis, unspecified (principal); R05 Cough; R09.81 Nasal congestion; R51 Headache; R06.02 Shortness of breath; R50.9 Fever, unspecified
CPT/HCPCS: 99283; A9270 ×4; J3490

== ENCOUNTER 2019-03-07 10:04 | Emergency (ER) | payer MEDICARE, OTHER ==
--- NOTE | 2019-03-07 10:15 | ER Document Report ---
ED Medical Screen (RME) - General Chief Complaint: Fever Stated Complaint: FEVER Time Seen by Provider: 03/07/19 10:12 Primary Care Provider: MARA FISCHER FNP-C [Primary Care Provider] - Follow up as needed Mode of Arrival: Ambulatory Information source: Patient Notes: 43-year-old male presented to ED for being sick for a week now. He states he was seen on Monday was diagnosed with a sinus infection and started on amoxicillin. He states he continues to have a fever all week about every 5 hours even after he takes Tylenol he with his fever returns. He has a history of testicular cancer shoulder injury ventral hernia and seizures. He is a former smoker but does not smoke now drinks alcohol weekly and states he is retired. Patient is alert oriented respirations regular and unlabored speaking in full sentences walks with a even steady gait. I have greeted and performed a rapid initial assessment of this patient. A comprehensive ED assessment and evaluation of the patient, analysis of test results and completion of medical decision making process will be conducted by an additional ED providers. Dictation of this chart was performed using voice recognition software; therefore, there may be some unintended grammatical errors. TRAVEL OUTSIDE OF THE [place] IN LAST 30 DAYS: No - Related Data Allergies/Adverse Reactions: No Known Allergies Allergy (Verified 03/07/19 10:05) Past Medical History - Past Medical History Cardiac Medical History: Denies: Hx Coronary Artery Disease, Hx Heart Attack, Hx Hypertension Pulmonary Medical History: Denies: Hx Asthma, Hx Bronchitis, Hx COPD, Hx Pneumonia Neurological Medical History: Reports: Hx Seizures - last seizure summer, not on any medications. Denies: Hx Cerebrovascular Accident Endocrine Medical History: Denies: Hx Diabetes Mellitus Type 1, Hx Diabetes Mellitus Type 2 Renal/ Medical History: Denies: Hx Peritoneal Dialysis Malignancy Medical History: Reports Hx Testicular Cancer Musculoskeltal Medical History: Denies Hx Arthritis Psychiatric Medical History: Reports: Hx Attention Deficit Hyperactivity Disorder Past Surgical History: Reports: Hx Abdominal Surgery - x2 hernia repair, Hx Genitourinary Surgery - testicular surgery, Hx Herniorrhaphy - x2, Hx Orthopedic Surgery - left shoulder surgery - Immunizations Hx Diphtheria, Pertussis, Tetanus Vaccination: No Physical Exam - Vital signs Vitals: Temp Pulse Resp BP Pulse Ox 98.1 F 97 16 121/70 97 03/07/19 10:03/07/19 10:03/07/19 10:03/07/19 10:03/07/19 10:09 Course - Vital Signs Vital signs: Temp Pulse Resp BP Pulse Ox 98.1 F 97 16 121/70 97 03/07/19 10:03/07/19 10:03/07/19 10:09 03/07/19 10:09 03/07/19 10:09 Doctor's Discharge - Discharge Referrals: MARA FISCHER, JUVENILE [employer]ATION OFFICER-C [Primary Care Provider] - Follow up as needed
[2019-03-07 10:41] LABS: HEMATOCRIT 40.8 % (37.9-51.0); MEAN CORPUSCULAR HEMOGLOBIN 29.7 pg (27.0-33.4); MEAN CORPUSCULAR HGB CONC 34.3 g/dL (32.0-36.0); MEAN CORPUSCULAR VOLUME 87 fl (80-97); PLATELET COUNT 246 10^3/uL (150-450); RED BLOOD COUNT 4.72 10^6/uL (4.35-5.55); RED CELL DISTRIBUTION WIDTH 12.6 % (11.5-14.0)
[2019-03-07 10:45] LABS: APPEARANCE,URINE SLIGHTLY-CLOUDY; BILIRUBIN,URINE NEGATIVE (NEGATIVE); GLUCOSE, URINE NEGATIVE (NEGATIVE); KETONES,URINE NEGATIVE (NEGATIVE); LEUKOCYTE ESTERASE,URINE NEGATIVE (NEGATIVE); NITRITE,URINE NEGATIVE (NEGATIVE); PROTEIN,URINE 30 mg/dL (NEGATIVE); URINE SPECIFIC GRAVITY 1.028
[2019-03-07 10:48] LABS: COLOR,URINE YELLOW
--- NOTE | 2019-03-07 11:00 | RADIOLOGY REPORT (SQ) ---
EXAM DESCRIPTION: CHEST 2 VIEWS COMPLETED DATE/TIME: 03/07/2019 10:44 am REASON FOR STUDY: Sick since Monday states has cough COMPARISON: 09/07/2013 EXAM PARAMETERS: NUMBER OF VIEWS: two views TECHNIQUE: Digital Frontal and Lateral radiographic views of the chest acquired. RADIATION DOSE: NA LIMITATIONS: none FINDINGS: LUNGS AND PLEURA: No opacities, masses or pneumothorax. No pleural effusion. MEDIASTINUM AND HILAR STRUCTURES: No masses or contour abnormalities. HEART AND VASCULAR STRUCTURES: Heart normal size. No evidence for failure. BONES: No acute findings. HARDWARE: None in the chest. OTHER: No other significant finding. IMPRESSION: No acute abnormality of the lungs. No focal airspace opacity. TECHNICAL DOCUMENTATION: JOB ID: [id number] [employer]- All Rights Reserved Reading location - IP/workstation name: [email or web address]
[2019-03-07 11:01] LABS: ABSOLUTE LYMPHOCYTES# (MANUAL) 3.2 10^3/uL (0.5-4.7); ABSOLUTE NEUTROPHILS# (MANUAL) 2.8 10^3/uL (1.7-8.2); BAND NEUTROPHILS % (MANUAL) 1 % (3-5); BASOPHILS % (MANUAL) 0 % (0-2); EOSINOPHILS % (MANUAL) 0 % (0-6); LYMPHOCYTES % (MANUAL) 27 % (13-45); MONOCYTES % (MANUAL) 14 % (3-13); SEGMENTED NEUTROPHILS % (MAN) 39 % (42-78); TOTAL CELLS COUNTED 100
[2019-03-07 11:02] LABS: URINE AMPHETAMINES SCREEN NEGATIVE; URINE BARBITURATES SCREEN NEGATIVE; URINE BENZODIAZEPINES SCREEN NEGATIVE; URINE COCAINE SCREEN NEGATIVE; URINE MARIJUANA (THC) SCREEN NEGATIVE; URINE METHADONE SCREEN NEGATIVE; URINE PHENCYCLIDINE SCREEN NEGATIVE
[2019-03-07 11:03] LABS: POLYCHROMASIA SLIGHT
[2019-03-07 11:04] LABS: PLATELET COMMENT ADEQUATE
[2019-03-07 11:07] LABS: ALANINE AMINOTRANSFERASE 71 U/L (21-72); ALBUMIN 3.7 g/dL (3.5-5.0); ALKALINE PHOSPHATASE 88 U/L (38-126); ANION GAP 7 (5-19); ASPARTATE AMINO TRANSFERASE 54 U/L (17-59); BILIRUBIN,DIRECT 0.4 mg/dL (0.0-0.4); BILIRUBIN,TOTAL 0.8 mg/dL (0.2-1.3); BLOOD UREA NITROGEN 9 mg/dL (7-20); CARBON DIOXIDE 29 mmol/L (22-30); CHLORIDE 103 mmol/L (98-107); GLUCOSE 105 mg/dL (75-110); LIPASE 144.2 U/L (23-300); POTASSIUM 4.6 mmol/L (3.6-5.0); SODIUM 138.5 mmol/L (137-145); TOTAL PROTEIN 6.5 g/dL (6.3-8.2)
--- NOTE | 2019-03-07 11:32 | ER Document Report ---
ED General - General Chief Complaint: Fever Stated Complaint: FEVER Time Seen by Provider: 03/07/19 10:12 Primary Care Provider: MARA FISCHER FNP-C [COMMUNITY BASED STAFF] - Follow up as needed Mode of Arrival: Ambulatory Notes: Patient says he has been experiencing fever and chills over the last 12 days. Has been feeling tired and weak, as well. Was seen here 3 days ago and diagnose d as having a sinus infection, and put on Augmentin. However, patient does not describe any symptoms that suggest a sinus infection. No nasal congestion or discharge. Denies sore throat. Has some mild cough and not much phlegm production. No vomiting or diarrhea. Says his fever was 102.3 this morning. Past medical history of surgery to remove his left testicle for cancer 6 years ago. No further treatment since then and cured of the disease. TRAVEL OUTSIDE OF THE [place] IN LAST 30 DAYS: No - Related Data Allergies/Adverse Reactions: No Known Allergies Allergy (Verified 03/07/19 10:05) Past Medical History - General Information source: Patient - Social History Smoking Status: Former Smoker Frequency of alcohol use: Occasional Drug Abuse: None Family History: None, Reviewed & Not Pertinent Patient has suicidal ideation: No Patient has homicidal ideation: No Neurological Medical History: Reports: Hx Seizures - last seizure summer, not on any medications Malignancy Medical History: Reports Hx Testicular Cancer Musculoskeletal Medical History: Denies Hx Arthritis Psychiatric Medical History: Reports: Hx Attention Deficit Hyperactivity Disorder Past Surgical History: Reports: Hx Abdominal Surgery - x2 hernia repair, Hx Genitourinary Surgery - testicular surgery, Hx Herniorrhaphy - x2, Hx Orthopedic Surgery - left shoulder surgery - Immunizations Hx Diphtheria, Pertussis, Tetanus Vaccination: No Review of Systems - Review of Systems Notes: CONSTITUTIONAL : Fever as described in HPI. CARDIOVASCULAR: Denies chest pain. RESPIRATORY: Denies much cough, chest congestion, or shortness of breath. Only slight nonproductive cough. GASTROINTESTINAL: Denies abdominal pain or nausea, vomiting, or diarrhea. GENITOURINARY: Denies difficulty or painful urinating, urinary frequency, blood in urine. Physical Exam - Vital signs Vitals: Temp Pulse Resp BP Pulse Ox 98.1 F 97 16 121/70 97 03/07/19 10:09 03/07/19 10:09 03/07/19 10:03/07/19 10:09 03/07/19 10:09 Interpretation: Normal. No: Febrile Notes: PHYSICAL EXAMINATION: GENERAL: Well-appearing, in no acute distress. No sinus congestion. No nasal congestion. HEAD: Atraumatic, normocephalic. EYES: Pupils equal round and reactive to light, extraocular movements intact. ENT: oropharynx clear without exudates. Moist mucous membranes. No exudates and no erythema. NECK: Normal range of motion, supple. No significant adenopathy. LUNGS: Breath sounds clear and equal bilaterally. HEART: Regular rate and rhythm without murmurs. ABDOMEN: Soft, nontender. No guarding or rebound. No masses. No left upper quadrant tenderness. BACK: No tenderness throughout entire back. EXTREMITIES: Normal range of motion without pain. NEUROLOGICAL: Normal speech, normal gait. Normal sensory, motor, and reflex exams. Awake, alert, and oriented x3. Cranial nerves normal. SKIN: Warm, dry, no rashes. Course - Re-evaluation Re-evalutation: 03/07/19 11:[address] Gamez. Probable viral illness. [place] test negative. - Vital Signs Vital signs: Temp Pulse Resp BP Pulse Ox 98.1 F 97 16 121/70 97 03/07/19 10:09 03/07/19 10:09 03/07/19 10:09 03/07/19 10:09 03/07/19 10:09 - Laboratory Result Diagrams: 03/07/19 10:20 03/07/19 10:20 Laboratory results interpreted by me: 03/07/19 03/07/19 10:20 10:20 Seg Neuts % (Manual) 39 L Band Neutrophils % 1 L Monocytes % (Manual) 14 H Urine Protein 30 H Urine Urobilinogen 4.0 H Discharge - Discharge Clinical Impression: Fever, Viral illness Condition: Stable Disposition: HOME, SELF-CARE Additional Instructions: FEVER: Fever is the body's reaction to infection. Fever can also occur with illnesses that create fever-producing substances in the body. By itself, fever is not harmful. It helps the body fight invading germs. We are more concerned with: (1) What's causing the fever? (2) How can we keep you more comfortable until the fever goes away? Early in an illness, symptoms are often so vague that a diagnosis can't be made. If the doctor hasn't identified a clear cause for your fever, you will probably develop new symptoms within the next two days. Contact the doctor if you develop severe worsening headache, rash, chest pain, cough with yellow or green sputum, difficulty breathing, abdominal pain, or other new symptoms. There is no reason to treat a fever if you're comfortable. If the fever is causing aches, headache, and fatigue, you can treat it with ibuprofen (Advil, Nuprin, etc) or acetaminophen (Tylenol). Follow the directions on the bottle. Get plenty of liquids (three quarts per day). Rest. Physical work or sports will raise the temperature higher and make you feel much worse. Dress lightly. If you're chilling, this means the temperature is trying to go higher. Take ibuprofen or acetaminophen. When you feel sweaty and "feverish" the temperature is coming down. If the fever doesn't go away within two days or if you become more ill, call the doctor or return at once for re-examination. NORMAL EXAM AND WORKUP: At this time, with the exception of your blood cells, with the exception of fever, your examination and workup show no significant abnormality. No significant abnormal physical findings were noted. All laboratory, EKG, and imaging (x-ray, CT scans, ultrasound) studies that were ordered show no significant abnormality. Although your examination and all studies that were ordered showed no significant abnormal finding, there are no examinations and no studies that are 100% accurate. There is always the possibility that some abnormality could exist and not be detected with physical examination or within the limits and capabilities of laboratory and other studies. You should return or follow up as you were instructed on your visit today for further evaluation if your symptoms do not resolve. VIRAL SYNDROME: The physician has diagnosed a likely viral infection. Viruses not only cause "colds," but can cause many different symptoms including generalized aching, fever, headache, cough, diarrhea, nausea, vomiting, and fatigue. The treatment, for the most part, is simply relief of symptoms. This means that antibiotics are usually not given. Rest, fluids, pain medications and, occasionally, medication for the specific symptoms that are most bothersome will be prescribed. Use good handwashing to avoid passing the virus to others. Shared toys should be cleaned with disinfectant. Clean the toilets, sinks, and counter surfaces in bathrooms. Launder clothing in hot water. Contact the physician if you develop any new or unusual symptoms such as severe headache, stiff neck, high fever, chest pain, productive cough, or shortness of breath. You should be rechecked if you don't see marked improvement within seven to 10 days. USE OF ACETAMINOPHEN (Tylenol): Acetaminophen may be taken for pain relief or fever control. It's much safer than aspirin, offering a wider range of "safe" dosages. It is safe during . Some brand names are Tylenol, Panadol, Datril, Anacin 3, Tempra, and Liquiprin. Acetaminophen can be repeated every four hours. The following are maximum recommended dosages: WEIGHT Dose Drops Elixir Chewable(80mg) (LBS.) drprs=droppers tsp=teaspoon >89 pounds or adults 650 mg to 900 mg Acetaminophen can be repeated every four hours. Maximum dose not to exceed 4000 mg a day. These maximum recommended dosages are slightly higher than the dosages written on the product container, but these dosages are very safe and below the toxic dosage for acetaminophen. FOLLOW-UP CARE: If you have been referred to a physician for follow-up care, call the physicians office for an appointment as you were instructed or within the next two days. If you experience worsening or a significant change in your symptoms, notify the physician immediately or return to the Emergency Department at any time for re-evaluation. If your symptoms persist, I recommend you follow-up with Dr. GAMEZ, whom you have seen for your testicular cancer. He is a specialist in blood and illnesses such as this likely viral infection you have. There is no medication to treat your condition. It is a benign condition which will eventually go away on its own. Forms: Return to Work Referrals: RON GAMEZ MD [ACTIVE STAFF] - Follow up as needed
[2019-03-07 12:05] VITALS: BP 138/69
[2019-03-08 11:24] LABS: PATH REVIEW PATHOLOGIST REVIEWED
== END 2019-03-07 12:04 | disposition home or self-care (01) ==
LOC: ER 10:04
DX: R50.9 Fever, unspecified (principal); B34.9 Viral infection, unspecified; R53.83 Other fatigue; R05 Cough; Z87.891 Personal history of nicotine dependence
CPT/HCPCS: 36415; 71046; 80053; 80307; 81001; 83690; 85025; 86308; 99283

== ENCOUNTER → 2019-03-29 | Outpatient (CLI) | payer MEDICARE, OTHER ==
--- NOTE | 2019-03-29 09:50 | RADIOLOGY REPORT (SQ) ---
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 The patient is less than 50 years old. TECHNIQUE: CT scan of the chest performed using helical scanning technique with dynamic intravenous contrast injection. Images reviewed with lung, soft tissue and bone windows. Reconstructed coronal a nd sagittal MPR images reviewed. All images stored on PACS. CT scan of the abdomen and pelvis performed with intravenous and with oral contrastusing helical scan amber technique with dynamic intravenous contrast injection. Images reviewed with lung, soft tissue a nd bone windows. Reconstructed coronal and sagittal MPR images reviewed. Delayed images for evaluat ion of the urinary system also acquired and evaluated. All images stored on PACS. All CT scanners at this facility use dose modulation, iterative reconstruction, and/or weight based d osing when appropriate to reduce radiation dose to as low as reasonably achievable (ALARA). [facility]: Dose Right [facility]: CareDose [facility]: Dose Right [facility]: Teradose 4D [facility]: [employer] RADIATION DOSE: CT Rad equipment meets quality standard of care and radiation dose reduction techniq ues were employed. CTDIvol: 8.3 - 10.8 mGy. DLP: 1514 mGy-cm. . LIMITATIONS: None. FINDINGS: CHEST: LUNGS AND PLEURA: No opacities, nodules, masses. No pneumothorax. No effusions. HILAR AND MEDIASTINAL STRUCTURES: No identified masses or abnormal nodes. HEART AND VASCULAR STRUCTURES: No aneurysm or dissection. No central pulmonary emboli. No pericardi al effusion. HARDWARE: None. THYROID AND OTHER SOFT TISSUES: No masses. No adenopathy. BONES: No significant finding. OTHER: No other significant finding. ABDOMEN AND PELVIS: LIVER: Normal size. No masses. No dilated ducts. SPLEEN: Normal size. No focal lesions. PANCREAS: No masses. No significant calcifications. No adjacent inflammation or peripancreatic fluid collections. Pancreatic duct not dilated. GALLBLADDER: No identified stones by CT criteria. No inflammatory changes to suggest cholecystitis. ADRENAL GLANDS: No significant masses or asymmetry. RIGHT KIDNEY AND URETER: No solid masses. No significant calcification. No hydronephrosis or hydroure ter. LEFT KIDNEY AND URETER: No solid masses. No significant calcification. No hydronephrosis or hydrouret er. AORTA AND VESSELS: No aneurysm. No dissection. Renal arteries, SMA, celiac without stenosis. RETROPERITONEUM: No retroperitoneal adenopathy, hemorrhage or masses. BOWEL AND PERITONEAL CAVITY: No masses or inflammatory changes. No free fluid or peritoneal masses. APPENDIX: Normal. ABDOMINAL WALL: No masses. No hernias. PELVIS: No mass or free fluid. Normal bladder. BONES: No significant or acute findings. OTHER: No other significant finding. IMPRESSION: NORMAL CT OF THE CHEST WITH IV CONTRAST. NORMAL CT OF THE ABDOMEN AND PELVIS WITH ORAL AND INTRAVENOUS CONTRAST. TECHNICAL DOCUMENTATION: JOB ID: [id number] Quality ID # [id number]: Final reports with documentation of one or more dose reduction techniques (e.g., Au tomated exposure control, adjustment of the mA and/or kV according to patient size, use of iterative reconstruction technique) 2010 [employer]- All Rights Reserved Reading location - IP/workstation name: [email or web address]
== END ==
LOC: RAD 09:00
PROVIDERS: ATTEND Internal Medicine Hematology & Oncology
DX: C62.12 Malignant neoplasm of descended left testis (principal)
CPT/HCPCS: 71260; 74177; 82565

== ENCOUNTER → 2019-08-09 | Outpatient (CLI) | payer MEDICARE, OTHER ==
--- NOTE | 2019-08-09 13:14 | RADIOLOGY REPORT (SQ) ---
EXAM DESCRIPTION: CT SINUSES FOR ENT COMPLETED DATE/TIME: 08/09/2019 8:10 am REASON FOR STUDY: ACUTE RECURRENT SINUSITIS (J01.91) J01.91 ACUTE RECURRENT SINUSITIS, UNSPECIFIED COMPARISON: None. TECHNIQUE: Noncontrast scanning through the paranasal sinuses using bone algorithm. Reconstructed MPR images reviewed. All images stored on PACS. All CT scanners at this facility use dose modulation, iterative reconstruction, and/or weight based d osing when appropriate to reduce radiation dose to as low as reasonably achievable (ALARA). [facility]: Dose Right [facility]: CareDose [facility]: Dose Right [facility]: Teradose 4D [facility]: [id number] RADIATION DOSE: 48mGy. LIMITATIONS: None. FINDINGS: Right sinuses and drainage pathways: Post-surgical changes: None. Frontal sinus: Not developed Frontoethmoidal Recess: Normal. Anterior Ethmoid Sinuses: Normal. Posterior Ethmoid Sinuses: Normal. Sphenoid Sinus: Normal. Sphenoethmoidal Recess: Normal. Maxillary Sinus: Circumferential mucous membrane thickening right maxillary sinus. There is an old right orbital floor fracture with a bony dehiscence 1 cm in diameter through which extraconal orbital fat bulges into the right maxillary sinus. No entrapment of the inferior rectus muscle. This findi ng is best shown on coronal reconstruction image 23/ Ostiomeatal Complex: Mucous membrane thickening on coronal images 19-22. Left Sinuses and Drainage Pathways: Post-Surgical Changes: None. Frontal Sinus: Normal. Frontoethmoidal Recess: Normal. Anterior Ethmoid Sinuses: Normal. Posterior Ethmoid Sinuses: Normal. Sphenoid Sinus: Normal. Sphenoethmoidal Recess: Normal. Maxillary Sinus: Normal. Ostiomeatal Complex: Normal. Right Olfactory Fossa: No polyps. Left Olfactory Fossa: No polyps. Middle Turbinate Lupe Bullosa: No. Paradoxical Middle Turbinate: No. Atelectatic Uncinated Process: No. Frontal Rodger Cell Type I: No. Frontal Rodger Cell Type II: No. Interfrontal Sinus Septal Cell: Yes on coronal image 16 and 17 Supra-Orbital Ethmoid: None. Frontal Bullar Cell: None. Suprabullar Bullar Cell: None. Sphenoethmoidal (Onodi) Cell: None. Pneumatization of the Anterior Clinoid Processes: No Hypoplastic Maxillary Sinus: None. Osteoneogenesis: None. Bone Dehiscence:None. Nasal Cavity: Normal. Nasal Septum: Midline Anatomic Variants: Right Vidian Canal: Normal. Left Vidian Canal: Normal. IMPRESSION: Mucous membrane thickening right maxillary sinus and maxillary outlet TECHNICAL DOCUMENTATION: JOB ID: [id number] Quality ID # [id number]: Final reports with documentation of one or more dose reduction techniques (e.g., Au tomated exposure control, adjustment of the mA and/or kV according to patient size, use of iterative reconstruction technique) 2010 [employer]- All Rights Reserved Reading location - IP/workstation name: [email or web address]
== END ==
LOC: RAD 07:46
PROVIDERS: ATTEND Otolaryngology
DX: J01.91 Acute recurrent sinusitis, unspecified (principal)
CPT/HCPCS: 70486

== ENCOUNTER → 2019-11-04 | Outpatient (CLI) | payer MEDICARE, OTHER ==
--- NOTE | 2019-11-04 09:33 | RADIOLOGY REPORT (SQ) ---
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 The patient is less than 50 years old. TECHNIQUE: CT scan of the chest performed using helical scanning technique with dynamic intravenous contrast injection. Images reviewed with lung, soft tissue and bone windows. Reconstructed coronal a nd sagittal MPR images reviewed. All images stored on PACS. CT scan of the abdomen and pelvis performed with intravenous and with oral contrastusing helical scan amber technique with dynamic intravenous contrast injection. Images reviewed with lung, soft tissue a nd bone windows. Reconstructed coronal and sagittal MPR images reviewed. Delayed images for evaluat ion of the urinary system also acquired and evaluated. All images stored on PACS. All CT scanners at this facility use dose modulation, iterative reconstruction, and/or weight based d osing when appropriate to reduce radiation dose to as low as reasonably achievable (ALARA). [facility]: Dose Right [facility]: CareDose [facility]: Dose Right [facility]: Teradose 4D [facility]: [employer] RADIATION DOSE: CT Rad equipment meets quality standard of care and radiation dose reduction techniq ues were employed. CTDIvol: 8.0 - 11.4 mGy. DLP: 1563 mGy-cm. . LIMITATIONS: None. FINDINGS: CHEST: LUNGS AND PLEURA: No opacities, nodules, masses. No pneumothorax. No effusions. HILAR AND MEDIASTINAL STRUCTURES: No identified masses or abnormal nodes. HEART AND VASCULAR STRUCTURES: No aneurysm or dissection. No central pulmonary emboli. No pericardi al effusion. HARDWARE: None. THYROID AND OTHER SOFT TISSUES: No masses. No adenopathy. BONES: No significant finding. OTHER: No other significant finding. ABDOMEN AND PELVIS: LIVER: Normal size. No masses. No dilated ducts. SPLEEN: Normal size. No focal lesions. PANCREAS: No masses. No significant calcifications. No adjacent inflammation or peripancreatic fluid collections. Pancreatic duct not dilated. GALLBLADDER: No identified stones by CT criteria. No inflammatory changes to suggest cholecystitis. ADRENAL GLANDS: No significant masses or asymmetry. RIGHT KIDNEY AND URETER: No solid masses. No significant calcification. No hydronephrosis or hydroure ter. LEFT KIDNEY AND URETER: No solid masses. No significant calcification. No hydronephrosis or hydrouret er. AORTA AND VESSELS: No aneurysm. No dissection. Renal arteries, SMA, celiac without stenosis. RETROPERITONEUM: No retroperitoneal adenopathy, hemorrhage or masses. BOWEL AND PERITONEAL CAVITY: No masses or inflammatory changes. No free fluid or peritoneal masses. APPENDIX: Normal. ABDOMINAL WALL: No masses. No hernias. PELVIS: No mass or free fluid. Normal bladder. BONES: No significant or acute findings. OTHER: No other significant finding. IMPRESSION: NORMAL CT OF THE CHEST WITH IV CONTRAST. NORMAL CT OF THE ABDOMEN AND PELVIS WITH ORAL AND INTRAVENOUS CONTRAST. TECHNICAL DOCUMENTATION: JOB ID: [id number] Quality ID # [id number]: Final reports with documentation of one or more dose reduction techniques (e.g., Au tomated exposure control, adjustment of the mA and/or kV according to patient size, use of iterative reconstruction technique) 2010 [employer]- All Rights Reserved Reading location - IP/workstation name: [email or web address]
== END ==
LOC: RAD 08:26
PROVIDERS: ATTEND Internal Medicine
DX: C62.12 Malignant neoplasm of descended left testis (principal)
CPT/HCPCS: 71260; 74177